=== PATIENT | female | born 1965 | race Caucasian/White ===

== ENCOUNTER 2017-10-05 02:35 | Emergency (ER) | payer MEDICAID ==
[~2017-10-05] VITALS: Ht 149.9 cm; Wt 81.6 kg
[2017-10-05 02:46] VITALS: BP_SYST 205
--- NOTE | 2017-10-05 02:46 | NUR ---
Patient to ER bed 6 to gown for evaluation. Side rails up.
--- NOTE | 2017-10-05 02:50 | NUR ---
Pt states that she developed ringing of the ears and intermittent dizziness. Pt is hypertensive at 200 systolic. Pt has nausea with vomitting. Pt reports headaches with no blurred vision. Will continue to monitor. No distress noted.
[2017-10-05] MEDS ORDERED: ONDANSETRON 4 MG ODT TAB ONE (03:11)
[2017-10-05] MEDS ORDERED: MECLIZINE HCL 25 MG TABLET (ANITVERT) ONE (03:11)
[2017-10-05] MEDS ORDERED: cloNIDine HCL 0.1 MG TABLET ONE (03:12)
[2017-10-05] MEDS ORDERED: MECLIZINE HCL 25 MG TABLET (ANITVERT) PO ONE (03:15)
[2017-10-05] MEDS ORDERED: ONDANSETRON 4 MG ODT TAB PO ONE (03:15)
[2017-10-05] MEDS ORDERED: cloNIDine HCL 0.1 MG TABLET PO ONE (03:15)
--- NOTE | 2017-10-05 03:20 | NUR ---
Dr Thakur at bedside to evaluate patient.
[2017-10-05 04:09] VITALS: BP_SYST 144
--- NOTE | 2017-10-05 04:09 | NUR ---
Patient given written and verbal discharge instructions and verbalizes understanding. ER MD discussed with patient the results and treatment provided. Patient in stable condition. ID arm band removed. Rx of Antivert given. Patient educated on pain management and to follow up with PMD. Pain Scale 0/10. Opportunity for questions provided and answered. Medication side effect fact sheet provided.
== END 2017-10-05 04:09 | disposition home or self-care (01) ==
LOC: SED 02:35
DX: R42 Dizziness and giddiness (principal); I10 Essential (primary) hypertension; R05 Cough
CPT/HCPCS: 81025; 99284; J8597; Q0162